=== PATIENT | female | born 1960 | race Two or more races ===

== ENCOUNTER 2020-06-25 11:27 | Emergency (ER) | payer OTHER ==
[~2020-06-25] VITALS: Ht 165.1 cm; Wt 72.6 kg
[2020-06-25] MEDS ORDERED: LIPOFEN150 MG PO (11:48)
[2020-06-25] MEDS ORDERED: FORTAMET1000 MG PO (11:49)
[2020-06-25] MEDS ORDERED: GLIPIZIDE XL10 MG PO (11:49)
[2020-06-25] MEDS ORDERED: EZALLOR SPRINKLE5 MG PO (11:49)
[2020-06-25] MEDS ORDERED: ATACAND4 MG PO (11:50)
== END 2020-06-25 19:49 | disposition home or self-care (01) ==
LOC: ER 11:27
DX: K29.00 Acute gastritis without bleeding (principal); Z03.818 Encounter for observation for suspected exposure to other biological agents ruled out

== ENCOUNTER 2021-02-01 12:03 | Emergency (ER) | payer OTHER ==
[~2021-02-01] VITALS: Ht 165.1 cm; Wt 79.4 kg
[~2021-02-01 12:03] MED LIST: ATACAND4 MG PO; EZALLOR SPRINKLE5 MG PO; FORTAMET1000 MG PO; GLIPIZIDE XL10 MG PO; LIPOFEN150 MG PO
[2021-02-01] MEDS ORDERED: OMEPRAZOLE MAGN20 MG PO (12:25)
== END 2021-02-01 16:30 | disposition home or self-care (01) ==
LOC: ER 12:03 → CPU-OBS 12:52 → ER 16:30
DX: R07.89 Other chest pain (principal)
CPT/HCPCS: G0378; G0379; 93005

== ENCOUNTER 2021-05-31 09:00 | Outpatient (CLI) | payer OTHER ==
[~2021-05-31 09:00] MED LIST changes: +OMEPRAZOLE MAGN20 MG PO
== END 2021-05-31 10:35 | disposition home or self-care (01) ==
LOC: PPH VACUNA 09:00
PROVIDERS: ATTEND Emergency Medicine Pediatric Emergency Medicine
DX: Z23 Encounter for immunization (principal)

== ENCOUNTER 2021-10-05 07:07 | Inpatient (IN) | payer OTHER ==
[~2021-10-05] VITALS: Ht 165.1 cm; Wt 79.8 kg
[2021-10-05] MEDS ORDERED: PROTONIX20 MG (07:16)
[2021-10-05] MEDS ORDERED: PEPCID AC10 MG (07:16)
[2021-10-05] MEDS ORDERED: COZAAR50 MG PO (07:17)
[2021-10-07] MEDS ORDERED: FENOFIBRATE160 MG (08:40)
[2021-10-07] MEDS ORDERED: CANDESARTAN CIL16 MG (08:40)
[2021-10-07] MEDS ORDERED: PANTOPRAZOLE SO40 MG (08:41)
[2021-10-07] MEDS ORDERED: FAMOTIDINE20 MG (08:41)
[2021-10-07] MEDS ORDERED: ROSUVASTATIN CAL5 MG (08:41)
== END 2021-10-08 16:00 | disposition home or self-care (01) | DRG 392 ==
LOC: ER 07:07 → SEC-K 14:44 → MEDI 14:44
PROVIDERS: ADMIT Internal Medicine; ATTEND Internal Medicine
PROC: BW21ZZZ Computerized Tomography (CT Scan) of Abdomen and Pelvis (ICD-10-PCS; principal; 2021-10-05)
DX: K57.32 Diverticulitis of large intestine without perforation or abscess without bleeding (principal); R10.32 Left lower quadrant pain; I10 Essential (primary) hypertension; E11.9 Type 2 diabetes mellitus without complications; Z79.4 Long term (current) use of insulin; K21.9 Gastro-esophageal reflux disease without esophagitis; Z20.822 Contact with and (suspected) exposure to COVID-19

== ENCOUNTER 2021-12-08 08:00 | Outpatient (CLI) | payer OTHER ==
[~2021-12-08 08:00] MED LIST changes: +CANDESARTAN CIL16 MG; +COZAAR50 MG PO; +FAMOTIDINE20 MG; +FENOFIBRATE160 MG; +PANTOPRAZOLE SO40 MG; +PEPCID AC10 MG; +PROTONIX20 MG; +ROSUVASTATIN CAL5 MG
== END 2021-12-08 08:30 | disposition home or self-care (01) ==
LOC: PPH VACUNA 08:00
PROVIDERS: ATTEND Emergency Medicine Pediatric Emergency Medicine
DX: Z23 Encounter for immunization (principal)

== ENCOUNTER 2025-07-16 07:30 | Outpatient (CLI) | payer OTHER | END 2025-07-16 07:31 | disposition home or self-care (01) | LOC: NUCLEAR 07:30 | PROVIDERS: ATTEND Specialist | DX: C50.411 Malignant neoplasm of upper-outer quadrant of right female breast (principal); D50.0 Iron deficiency anemia secondary to blood loss (chronic) ==